=== PATIENT | female | born 1940 | race Caucasian/White ===

== ENCOUNTER 2018-08-16 08:00 | Inpatient (IN) ==
[~2018-08-16 08:00] MED LIST: BUPivacaine Liposome/PF (Exparel) Inj 20ml vial INFIL ONE; Ketorolac Inj 30 MG, Morphine Inj (Ortho Cocktail) 5 MG, BUPivacaine Inj 0.25% PF 150 MG SPLASH ONE; LIDOCAINE W/ SODIUM BICARB 0.5 ML SYR SUBD PRN; Nasal Sanitizer POPSWAB ampule 3 AMP (Nozin) PREOP DOSE ENOS SCH; Tranexamic Acid 1,000 MG in Sodium Chloride 0.9% 100 ML IV SCH; ceFAZolin Inj 2gm (Premix) 2 GM/50 ML BAG IV ONE
[2018-08-16] MEDS ORDERED: ceFAZolin Inj 2gm (Premix) 2 GM/50 ML BAG IV ONE (08:48)
[2018-08-16] MEDS ORDERED: LIDOCAINE W/ SODIUM BICARB 0.5 ML SYR ONE (08:48)
[2018-08-16] MEDS ORDERED: Lactated Ringers 1,000 ML PRIMARY IV ONE ×3 (08:48→16:51)
[2018-08-16] MEDS ORDERED: fentaNYL Inj 100 MCG/2 ML VIAL ONE (09:28)
[2018-08-16] MEDS ORDERED: MIDAZOLAM HCL 2 MG/2 ML VIAL ONE (09:28)
[2018-08-16] MEDS ORDERED: VECURONIUM BROMIDE 10 MG VIAL ONE (09:29)
[2018-08-16] MEDS ORDERED: PROPOFOL 10 MG/1 ML (200 MG/20 ML) VIAL IV ONE (09:31)
[2018-08-16] MEDS ORDERED: KETAMINE HCL 100 MG/2 ML SYRINGE IV ONE (09:31)
[2018-08-16] MEDS: Lactated Ringers 1,000 ML PRIMARY IV SCH ×2 (10:10→19:30)
--- NOTE | 2018-08-16 11:03 | CONSULT ---
Consult Note - Consult Reason for Consult: PostOp Consulation : Ortho Requesting Physician: Moy Primary Care Provider: NEVAEH JHA - History of Present Illness History of Present Illness: Patient is in the was seen in the preop area is getting ready to go in for her surgery she is doing well at present time has no complaints no chest pain nausea or vomiting he does have a history of diabetes Past Medical History Medical History: Diabetes, GERD Tobacco Use: Never Smoker In the Past 12 Months, Have Used or Abuse Any of the Following Substance: None Review of Systems - Review of Systems All Systems: Reviewed & No Additional Complaints Except as Stated - Respiratory Respiratory: DENIES: Negative System Review, Cough, Sputum, Dyspnea At Rest, Dyspnea with Exertion, Pleuritic Pain, Hemoptysis, Wheezing, Other, See HPI - Cardiovascular Cardiovascular: DENIES: Negative System Review, Chest Pain, Edema, Syncope, Palpitations, Orthopnea, Paroxysmal Nocturnal Dyspnea, Other, See HPI - Gastrointestinal Gastrointestinal / Abdominal: DENIES: Negative System Review, Nausea, Vomiting, Diarrhea, Constipation, Abdominal Pain, Bloody Stool, Poor Appetite, Heartburn, Regurgitation, Bloating, Lactose Intolerance, Melena, Bright Red Blood per Rect um, Other, See HPI Medication / Allergies Home Medications: Home Medications Medication Instructions Recorded Confirmed Type coenzyme Q10 100 mg capsule 200 mg PO QDAY cap 10/22/17 08/16/18 History duloxetine 60 mg capsule,delayed 60 mg PO QDAY 10/22/17 08/16/18 History release ferrous sulfate 325 mg (65 mg 325 mg PO QDAY tab 10/22/17 08/16/18 History iron) tablet,delayed release furosemide 20 mg tablet 20 mg PO QDAY 10/22/17 08/16/18 History metformin 500 mg tablet 500 mg PO BID 10/22/17 08/16/18 History omeprazole 20 mg capsule,delayed 20 mg PO QDAY 10/22/17 08/16/18 History release pravastatin 80 mg tablet 80 mg PO QHS tab 10/22/17 08/16/18 History spironolactone 25 mg tablet 25 mg PO QDAY 10/22/17 08/16/18 History metoprolol tartrate 50 mg tablet 50 mg PO BID 01/05/18 08/16/18 History losartan 100 mg tablet 100 mg PO QDAY 06/29/18 08/16/18 History Acetaminophen [Tylenol] PO 08/16/18 History Aspirin [Aspir 81] 81 mg PO 08/16/18 History Calcium Carb, Citrate/Vit D3 1 ea PO DAILY 08/16/18 08/16/18 History [Calcium + D3 ER Tablet] Allergies/Adverse Reactions: Allergies Allergy/AdvReac Type Severity Reaction Status Date / Time meloxicam AdvReac ITCHING Verified 08/16/18 10:25 Exam - Vitals Vital Signs: Vital Signs Height 5 ft 3 in Weight 174 lb 12.8 oz - General General Appearance: No Acute Distress, Cooperative - ENT ENT Exam: POSITIVE: Normal Exam, Normal External Ear Exam, Normal Oropharynx, TM's Normal Bilaterally, Mucous Membranes Moist - Respiratory Respiratory Exam: POSITIVE: Clear to Auscultation - Bilaterally, Breathing Non Labored, Normal To Percussion, Normal to Percussion and Palpation - Cardiovascular Cardiovascular Exam: POSITIVE: RRR, No Murmur, No Clicks, No Gallops, No Rubs, PMI Non-Displaced - GI/Abdominal GI/Abdominal Exam: POSITIVE: Normal Bowel Sounds, Non Tender, Non Distended, Soft, No Masses, No Hepatomegaly, No Splenomegaly, No Organomegaly Results - Labs CBC and BMP: 08/16/18 10:55 Assessment and Plan - Patient Problems (1) Diabetes Current Visit: Yes Status: Acute Comment: Hold metformin cover patient with sliding scale Code(s): E11.9 - Type 2 diabetes mellitus without complications (2) S/P hip replacement Current Visit: Yes Status: Acute Comment: Postop PT OT and anticoagulation and pain management as per Dr. Winter Code(s): Z96.649 - Presence of unspecified artificial hip joint
[2018-08-16] MEDS ORDERED: Sodium Chloride 0.9% 2,000 ML PRIMARY IV ONE (11:40)
[2018-08-16] MEDS ORDERED: Sodium Chloride 0.9% 0 ML ONE (11:40)
[2018-08-16 11:41] LABS: BILIRUBIN,URINE NEGATIVE (NEG); CLARITY,URINE CLEAR (CLEAR); COLOR,URINE YELLOW (Y); GLUCOSE, URINE (UA) NEGATIVE (NEG); OCCULT BLOOD,URINE NEGATIVE (NEG); PH,URINE 6.5 (5.0-8.5); PROTEIN,URINE TRACE mg/dl (NEG)
[2018-08-16 11:42] LABS: URINE SAMPLE TYPE CLEAN CATCH URINE
[2018-08-16] MEDS ORDERED: HEPARIN 10,000 UNIT/1 ML ONE (11:52)
[2018-08-16] MEDS ORDERED: Sodium Chloride 0.9% vial 40 ML ONE (11:52)
[2018-08-16] MEDS ORDERED: BUPivacaine Liposome/PF (Exparel) Inj 20ml vial INFIL ONE (11:52)
[2018-08-16] MEDS ORDERED: Gentamicin Inj 40 MG/ML VIAL ONE (11:52)
[2018-08-16] MEDS ORDERED: ePHEDrine Inj 50 MG/ML AMP ONE (12:42)
[2018-08-16] MEDS ORDERED: DEXAMETHASONE PF 10 MG/1 ML VIAL ONE (12:43)
[2018-08-16] MEDS ORDERED: Hetastarch 6% + NS 500 ML IV ONE (13:01)
[2018-08-16] MEDS ORDERED: TRANEXAMIC ACID 1,000 MG / 10 ML VIAL ONE (13:03)
[2018-08-16] MEDS ORDERED: ONDANSETRON 4 MG/2 ML VIAL ONE (14:46)
[2018-08-16] MEDS ORDERED: HYDROmorphone 2 MG/1 ML ONE (14:55)
[2018-08-16] MEDS ORDERED: SUGAMMADEX SODIUM 200 MG/2 ML VIAL IV ONE (14:57)
[2018-08-16] MEDS ORDERED: Sodium Chloride 0.9% 500 ML ONE ×2 (15:04→15:07)
--- NOTE | 2018-08-16 15:11 | ORTHO.OP ---
- - -: See Dictated Operative Report Procedure Codes - Hip Procedures Primary Hip Procedure: 30988 : SLOAN (Bel SONI assisted)
[2018-08-16] MEDS ORDERED: Prochlorperazine Edisylate Inj 10mg/2ml vial IVP ONE (15:45)
[2018-08-16] MEDS ORDERED: Prochlorperazine Edisylate Inj 10mg/2ml vial ONE (15:51)
[2018-08-16] MEDS ORDERED: LIDOCAINE HCL 2 % 10 ML JELLY URO-JECT TOPICAL PRN (17:08)
--- NOTE | 2018-08-16 17:12 | DI ---
XR HIP COMPLETE MIN 2VW U/L 08/16/2018 3:04 PM History: [facility] [place] DI ^right total hip for osteoarthritis Comparison: 10/22/2017. Findings: Portable AP view of the pelvis and AP/crosstable lateral views of the right hip demonstrate right total hip arthroplasty. There is no evidence of hardware fracture or loosening. The acetabular cup is in expected position. [place] are noted along the lateral skin line. A drain tip projects ove r the anterior hip joint. Gas is noted in the soft tissues, an expected finding in the immediate post operative timeframe. No evidence of acute fracture, aggressive bone lesion, or focal periostitis. The re are degenerative changes of the left hip and spine. The soft tissues are otherwise unremarkable. Impression: Status post right total hip arthroplasty without evidence of hardware failure or acute o sseous abnormality.
[2018-08-16] MEDS ORDERED: LIDOCAINE HCL 2 % 10 ML JELLY URO-JECT TOPICAL ONE (17:14)
[2018-08-16 17:40] LABS: Hematocrit [HCT] 23.4 % (37.0-47.0); Hemoglobin [HGB] 7.7 g/dL (12.0-16.0); MEAN CORPUSCULAR HEMOGLOBIN 33.2 PG (27-31); MEAN CORPUSCULAR HGB CONC 32.9 g/dL (33-37); MEAN CORPUSCULAR VOLUME 100.9 FL (81-99); MEAN PLATELET VOLUME 9.2 FL (7.4-12.2); RED BLOOD COUNT 2.32 10^6/uL (4.20-5.40)
[2018-08-16 17:51] LABS: BLOOD UREA NITROGEN 32 mg/dL (7-22); BUN/CREATININE RATIO 26.66 (6-20); SERUM ALBUMIN 2.5 g/dL (3.5-4.8)
--- NOTE | 2018-08-16 17:54 | CRNA.PROGR ---
Anesthesia Time - Procedure/Recovery Time Start Date: 08/16/18 End Date: 08/16/18 Anesthesia : Time In: 12:07 Anesthesia : Time Out: 15:27 Anesthesia : Total Time: 200 - Total Anesthesia Time Total Anesthesia Time (minutes): 200 - Other Weight: 79.288 kg Height: 5 ft 3 in Body Mass Index (BMI): 30.9 Physical Status: P2 Anesthesia Type: General Anesthesia : ET
--- NOTE | 2018-08-16 17:55 | CRNA.PROGR ---
Post Anesthesia Phase II - Post Anesthesia Phase II Patient Stable and Discharged To: Med/Surg Temperature: 98.6 F Pulse Rate: 61 Respiratory Rate: 12 Blood Pressure: 93/44 Pulse Ox: 93 Total Reji Score at Discharge: 9 Post Anesthesia Discharge Criteria Met: Yes
--- NOTE | 2018-08-16 17:55 | CRNA.PROGR ---
Anesthesia Recovery Phase I - Post Anesthesia Evaluation Patient's Condition on Arrival in Phase I: Stable Patient's Condition on Arrival in Phase II: Stable Pain Level: 1 (Nauseated. Medicated for such. Transferred to [facility].)
[2018-08-16] MEDS ORDERED: Lactated Ringers 2,000 ML PRIMARY IV ONE (18:03)
[2018-08-16] MEDS ORDERED: MAG HYDROX/AL HYDROX/SIMETH 30 ML SUSP PO PRN (18:37)
[2018-08-16] MEDS ORDERED: diphenhydrAMINE 25 MG CAPSULE PO PRN (18:37)
[2018-08-16] MEDS ORDERED: CALCIUM CARBONATE 500 MG (TUMS) CHEWABLE TABLET PO PRN (18:37)
[2018-08-16] MEDS ORDERED: HYDROmorphone 2 MG/1 ML IVP PRN (18:37)
[2018-08-16] MEDS ORDERED: BISACODYL 5 MG TABLET PO PRN (18:37)
[2018-08-16] MEDS ORDERED: ONDANSETRON 4 MG/2 ML VIAL IVP PRN (18:37)
[2018-08-16] MEDS ORDERED: BISACODYL 10 MG SUPPOSITORY RECTAL PRN (18:37)
[2018-08-16] MEDS ORDERED: Ondansetron ODT Tab 8 MG TAB PO PRN (18:37)
[2018-08-16] MEDS ORDERED: KETOROLAC 15 MG/1 ML VIAL IVP PRN (18:37)
[2018-08-16] MEDS ORDERED: Prochlorperazine Tab 10 MG TAB PO PRN (18:37)
[2018-08-16] MEDS ORDERED: ACETAMINOPHEN 325 MG TABLET PO PRN (18:37)
[2018-08-16] MEDS: DOCUSATE 100 MG CAPSULE PO SCH (21:09)
[2018-08-16] MEDS: Pravastatin 80mg Tab PO SCH (21:09)
[2018-08-16] MEDS: metFORMIN 500 MG TABLET PO SCH (21:10)
[2018-08-16] MEDS: ceFAZolin Inj 2gm (Premix) 2 GM/50 ML BAG IV SCH (21:12)
[2018-08-16] MEDS: Metoprolol TARTRATE Tab 50 MG TAB PO SCH (21:25)
[2018-08-17] MEDS: HYDROcodone-APAP 7.5 MG-325 MG TABLET PO PRN ×5 (01:50→20:59)
[2018-08-17] MEDS: ceFAZolin Inj 2gm (Premix) 2 GM/50 ML BAG IV SCH (04:34)
[2018-08-17] MEDS: Lactated Ringers 1,000 ML PRIMARY IV SCH ×3 (04:35→15:38)
[2018-08-17 05:21] LABS: MEAN CORPUSCULAR HEMOGLOBIN 32.7 PG (27-31); MEAN CORPUSCULAR HGB CONC 32.5 g/dL (33-37); MEAN CORPUSCULAR VOLUME 100.5 FL (81-99); MEAN PLATELET VOLUME 10.3 FL (7.4-12.2); RED BLOOD COUNT 1.99 10^6/uL (4.20-5.40)
[2018-08-17 05:25] LABS: Hemoglobin [HGB] 6.5 g/dL (12.0-16.0)
[2018-08-17 05:26] LABS: BLOOD UREA NITROGEN 34 mg/dL (7-22); BUN/CREATININE RATIO 28.33 (6-20)
[2018-08-17] MEDS ORDERED: Sodium Chloride 0.9% 500 ML PRIMARY IV ONE (05:44)
[2018-08-17] MEDS ORDERED: Spironolactone Tab 25 MG TAB PO SCH (07:00)
--- NOTE | 2018-08-17 07:10 | PDOC(PROG) ---
Interval History: Uneventful night no chest pain nausea or vomiting she is getting transfused at present time Objective : Data - Labs CBC and BMP: 08/17/18 04:14 08/17/18 04:14 Objective : Exam - General General Appearance: Cooperative - Respiratory Respiratory Exam: Clear to Auscultation - Bilaterally, Breathing Non Labored, Normal To Percussion, Normal to Percussion and Palpation - Cardiovascular Cardiovascular Exam: RRR, No Murmur, No Clicks, No Gallops, No Rubs, PMI Non- Displaced - GI/Abdominal GI/Abdominal Exam: Normal Bowel Sounds, Non Tender, Non Distended, Soft, No Masses, No Hepatomegaly, No Splenomegaly, No Organomegaly - Extremities Extremities Exam: No Clubbing Present, No Edema Present, No Cyanosis Present Assessment and Plan - Patient Problems (1) Diabetes Current Visit: Yes Status: Acute Comment: Check sugars before meals at bedtime continue sliding scale Code(s): E11.9 - Type 2 diabetes mellitus without complications (2) S/P hip replacement Current Visit: Yes Status: Acute Comment: Defer anticoagulation PT OT and pain to Dr. Winter Code(s): Z96.649 - Presence of unspecified artificial hip joint (3) Postoperative anemia Current Visit: Yes Status: Acute Comment: Postop anemia with marginal blood pressure drifted down to below 7 Will transfuse 2 units as they are already on hold and type and crossed patient is hemodynamically unstable with marginal blood pressure even with multiple fluid boluses. Stop Aldactone and Cozaar Code(s): D64.9 - Anemia, unspecified (4) Hyperkalemia Current Visit: Yes Status: Acute Comment: We'll stop Aldactone and Cozaar continue beta henri potassium is at 5 Code(s): E87.5 - Hyperkalemia
[2018-08-17] MEDS: OMEPRAZOLE 20 MG CAPSULE PO SCH ×3 (08:02→20:59)
[2018-08-17] MEDS: FUROSEMIDE 20 MG TABLET PO SCH (08:02)
[2018-08-17] MEDS ORDERED: LOSARTAN 50 MG TABLET PO SCH (09:00)
[2018-08-17] MEDS: metFORMIN 500 MG TABLET PO SCH ×2 (09:29→20:59)
[2018-08-17] MEDS: DOCUSATE 100 MG CAPSULE PO SCH ×2 (09:29→20:58)
[2018-08-17] MEDS: DULOXETINE 60 MG CAPSULE PO SCH (09:29)
[2018-08-17] MEDS: Calcium/Vit D 600mg/400u Tab 1 TAB TABLET PO SCH (09:29)
[2018-08-17] MEDS: Metoprolol TARTRATE Tab 50 MG TAB PO SCH ×2 (09:29→20:58)
[2018-08-17] MEDS: ASPIRIN 325 MG EC TABLET PO SCH ×2 (09:29→20:59)
[2018-08-17] MEDS ORDERED: FUROSEMIDE 10 MG/1 ML - 4 ML IVP ONE (09:30)
--- NOTE | 2018-08-17 16:42 | PTI REPORT ---
Thank you for the referral of Zonia De La Rosa. She was seen on 08/17/18 for an inpatient evaluation status post right total hip arthroplasty. SUBJECTIVE: The patient is a 77-year-old female. The patient reports that she lives in [place] alone. The patient's family is in [place]. The patient has stairs in her home. The patient does not use an assistive device at home and was previously independent. The patient states her pain is minimal right now at 3/10 on the verbal analog scale (0=no pain, 10=worst pain). PAST MEDICAL HISTORY: Past medical history can be found in the patient's medical record. OBJECTIVE FINDINGS: General observations: Nursing okayed treatment prior to PT. The patient had a drain in her right hip. Bed mobility: The patient required min assist to transfer from supine to sitting edge of bed. Transfers: The patient required contact guard assist for sit to stand transfer with walker. The patient required minimal cueing for stand to sit technique and contact guard assist x2 for safety. Ambulation: The patient required contact guard assist x2 for ambulation. The patient ambulated approximately 30 feet with walker. ASSESSMENT: The patient is a 77-year-old female that presents status post total hip arthroplasty. The patient would benefit from skilled therapy in order to improve functional mobility. The patient's prognosis for therapy is good. Problem List: Decreased strength Decreased functional mobility Decreased independence Short-Term Goals: To be met by discharge from inpatient: Patient will be independent with all transfers. Patient will be able to ambulate 150 feet independently with least restrictive assistive device. Patient will be able to ascend and descend stairs independently with least restrictive assistive device. Long-Term Goals: To be met following discharge from inpatient: Patient will benefit from outpatient physical therapy. TREATMENT PLAN: Patient will be seen B.I.D during the week and one time per day over the weekend as an inpatient for therapeutic exercise, functional activity, neuromuscular reeducation, gait training, and modalities as needed. INITIAL TREATMENT: Treatment today consisted of the initial evaluation followed by the patient ambulating approximately 30 feet with contact guard assist x2 and standard walker. Following treatment the patient was left in her chair with chair alarm activated and call light within reach. [facility]
--- NOTE | 2018-08-17 19:19 | ORTHO.PROG ---
Last Taken Vital Signs: Vital Signs - Last Taken Temperature 97.6 F 08/17/18 17:00 Pulse Rate 75 08/17/18 17:00 Respiratory Rate 16 08/17/18 17:00 Blood Pressure 106/54 08/17/18 17:00 Pulse Ox 92 08/17/18 17:00 Subjective: Patient seen this morning this evening was very pale this morning color this evening looks markedly better she feels her pain is well controlled on oral medications. Has mobilized a little bit but had blood transfusions today. Objective: At the current time patient's leg with no active bleeding or swelling her Hemovac drain was removed there is a minimal fluid in the Hemovac and a decreased significantly over the last 12 hours on her popliteal adductor hiatus and thigh no significant pain or discomfort dressing is clean and dry working well. Motor and sensory exam is nonfocal good pulses brisk refill. Intake and Output - 8hrs 08/16/18 08/17/18 08/17/18 08/17/18 21:59 05:59 13:59 21:59 Intake: IV 3800 / 4647 847 / 4647 1268 / 1268 Intake Oral Amount 200 / 670 470 / 670 1220 / 1700 480 / 1700 Breakfast 480 / 480 Dinner 480 / 480 Lunch 240 / 240 Intake, Blood Product Amount 450 / 450 Packed Red Bld Cells Unit 450 / 450 [id number] Packed Red Bld Cells Unit 0 / 0 [id number] OrthoPat 75 / 75 Output: Output, Drainage Amount 120 / 120 60 / 60 Right Hip 60 / 60 Output, Urinary Catheter Amount 300 / 300 750 / 1750 1000 / 1750 Output, Urine Amount 100 / 100 Output, Post Indwelling 100 / 100 Catheter Insertion Output, Estimated Blood Loss 600 / 600 Amount Other: Percent Meal Consumed Breakfast 100% Dinner 100% Lunch 100% Drains Hemovac Negative Pressure Drain right anterior hip Hemovac Wound Vac Weight 79.288 kg 79.651 kg Weight Measurement Method Built in [facility] Laboratory Results 08/16/18 08/17/18 08/17/18 10:46 04:14 04:14 WBC 8.84 RBC 1.99 L Hgb 6.5 L* Hct 20.0 L* MCV 100.5 H MCH 32.7 H MCHC 32.5 L RDW Std Deviation 41.6 RDW Coeff of Fran 12.3 Plt Count 117 L MPV 10.3 Sodium 135 Potassium 5.5 H Chloride 106 Carbon Dioxide 24 Anion Gap 5 BUN 34 H Creatinine 1.2 BUN/Creatinine Ratio 28.33 H Glucose 158 H Calculated Osmolality 290.0 Calcium 8.3 L Blood Type O POSITIVE Antibody Screen Negative Crossmatch See Detail Vital Signs (24 hrs) 08/16/18 20:27 08/16/18 23:00 08/17/18 00:11 Temperature 97.4 F 97.7 F Pulse Rate Pulse Rate [Pulse Oximeter] 65 72 80 Respiratory Rate 20 16 20 Blood Pressure Blood Pressure [Left Arm] 102/49 Blood Pressure [Right Arm] 97/52 113/51 Pulse Ox 97 98 99 08/17/18 02:00 08/17/18 04:52 08/17/18 05:33 Temperature 98.5 F Pulse Rate Pulse Rate [Pulse Oximeter] 86 79 Respiratory Rate 17 16 Blood Pressure Blood Pressure [Left Arm] Blood Pressure [Right Arm] 104/50 106/43 Pulse Ox 95 93 94 08/17/18 06:57 08/17/18 07:00 08/17/18 07:48 Temperature 97.1 F 98.5 F Pulse Rate 79 Pulse Rate [Pulse Oximeter] 78 78 Respiratory Rate 18 18 18 Blood Pressure 114/45 Blood Pressure [Left Arm] Blood Pressure [Right Arm] 114/44 Pulse Ox 95 97 08/17/18 07:55 08/17/18 07:59 08/17/18 08:06 Temperature 98.5 F 97.9 F 98.0 F Pulse Rate 88 86 90 Pulse Rate [Pulse Oximeter] Respiratory Rate 18 18 18 Blood Pressure 118/51 121/72 122/70 Blood Pressure [Left Arm] Blood Pressure [Right Arm] Pulse Ox 97 98 94 08/17/18 08:07 08/17/18 08:15 08/17/18 08:22 Temperature 97.9 F 97.5 F 97.6 F Pulse Rate 90 83 85 Pulse Rate [Pulse Oximeter] Respiratory Rate 18 18 18 Blood Pressure 133/45 129/63 113/54 Blood Pressure [Left Arm] Blood Pressure [Right Arm] Pulse Ox 92 91 95 08/17/18 08:35 08/17/18 08:48 08/17/18 09:00 Temperature 98.1 F 98.4 F 98.1 F Pulse Rate 85 87 85 Pulse Rate [Pulse Oximeter] Respiratory Rate 18 18 18 Blood Pressure 116/63 116/41 118/55 Blood Pressure [Left Arm] Blood Pressure [Right Arm] Pulse Ox 93 94 92 08/17/18 09:15 08/17/18 09:30 08/17/18 10:00 Temperature 97.7 F 98.2 F 98.2 F Pulse Rate 84 79 71 Pulse Rate [Pulse Oximeter] Respiratory Rate 19 18 18 Blood Pressure 104/56 105/51 107/57 Blood Pressure [Left Arm] Blood Pressure [Right Arm] Pulse Ox 93 94 91 08/17/18 10:46 08/17/18 10:53 08/17/18 11:01 Temperature 97.8 F 97.7 F 98.1 F Pulse Rate 71 71 68 Pulse Rate [Pulse Oximeter] Respiratory Rate 18 18 20 Blood Pressure 115/62 110/92 97/58 Blood Pressure [Left Arm] Blood Pressure [Right Arm] Pulse Ox 95 94 93 08/17/18 11:04 08/17/18 11:08 08/17/18 11:19 Temperature 97.8 F 97.9 F 97.7 F Pulse Rate 68 72 67 Pulse Rate [Pulse Oximeter] Respiratory Rate 20 20 20 Blood Pressure 96/48 96/48 89/51 Blood Pressure [Left Arm] Blood Pressure [Right Arm] Pulse Ox 97 93 95 08/17/18 11:34 08/17/18 11:49 08/17/18 12:32 Temperature 97.8 F 97.6 F 97.9 F Pulse Rate 68 74 87 Pulse Rate [Pulse Oximeter] Respiratory Rate 20 20 20 Blood Pressure 111/88 103/42 111/63 Blood Pressure [Left Arm] Blood Pressure [Right Arm] Pulse Ox 95 97 96 08/17/18 12:58 08/17/18 17:00 Temperature 97.9 F 97.6 F Pulse Rate 80 Pulse Rate [Pulse Oximeter] 75 Respiratory Rate 20 16 Blood Pressure 123/49 Blood Pressure [Left Arm] Blood Pressure [Right Arm] 106/54 Pulse Ox 96 92 Assessment: Right total hip replacement Marked anemia Plan: Patient transfused 2 units of packed red blood cells and is doing markedly better after this. She did mobilize in the room today and did fine. Patient did have a Ahumada catheter placed issues unable to get up to void. She'll continue with oral pain medication and IV medication as needed. We'll continue with physical therapy and occupational therapy partial weightbearing with walker.
[2018-08-17] MEDS: Pravastatin 80mg Tab PO SCH (20:59)
[2018-08-18 05:12] LABS: Hematocrit [HCT] 27.7 % (37.0-47.0); MEAN CORPUSCULAR HEMOGLOBIN 32.5 PG (27-31); MEAN CORPUSCULAR HGB CONC 32.5 g/dL (33-37); MEAN PLATELET VOLUME 10.4 FL (7.4-12.2); RED BLOOD COUNT 2.77 10^6/uL (4.20-5.40)
[2018-08-18 05:31] LABS: BLOOD UREA NITROGEN 43 mg/dL (7-22); BUN/CREATININE RATIO 30.71 (6-20)
[2018-08-18] MEDS: FUROSEMIDE 20 MG TABLET PO SCH (08:16)
--- NOTE | 2018-08-18 08:43 | PDOC(PROG) ---
Date of Service: 08/18/18 Time of Service: 08:45 Interval History: Subjective Patient is denying symptoms. Her pain seemed to be controlled. She is not feeling dizzy or lightheaded today. She said she has a history of congestive heart failure, previous history of A. fib, hypertension and diabetes. She is on metoprolol, Aldactone and Lasix. She was on Diovan apparently switched to losartan. Objective : Data - Labs CBC and BMP: 08/18/18 03:55 08/18/18 03:55 Objective : Exam - General General Appearance: No Acute Distress - Head Head Exam: Normal Inspection - Eye Eye Exam: Normal Appearance - ENT ENT Exam: Normal Exam - Neck Neck Exam: Normal Inspection - Respiratory Respiratory Exam: Clear to Auscultation - Bilaterally - Cardiovascular Cardiovascular Exam: RRR - GI/Abdominal GI/Abdominal Exam: Normal Bowel Sounds, Non Tender, Non Distended, Soft, No Organomegaly - Rectal Rectal Exam: Deferred - External Exam: Deferred - Extremities Additional Extremities Exam Details: No edema, SCD boots applied. Dressing applied to the right hip. Right hip drain noted. - Back Back Exam: Normal Inspection - Neurological Neurological Exam: Alert, Oriented x 3, CN II-XII Intact - Psychiatric Psychiatric Exam: Normal Affect - Integumentary Integumentary Exam: Normal Color Assessment and Plan - Patient Problems (1) S/P hip replacement Current Visit: Yes Status: Acute Comment: Pain seemed to be controlled, continue PT and OT. For DVT prophylaxis she is on aspirin. Code(s): Z96.649 - Presence of unspecified artificial hip joint (2) Diabetes Current Visit: Yes Status: Acute Comment: Continue metformin Code(s): E11.9 - Type 2 diabetes mellitus without complications (3) Postoperative anemia Current Visit: Yes Status: Acute Comment: She status post blood transfusion, hemoglobin is acceptable today will repeat it tomorrow. Code(s): D64.9 - Anemia, unspecified (4) Hyperkalemia Current Visit: Yes Status: Acute Comment: Losartan and Aldactone where withheld. Continue holding those. Code(s): E87.5 - Hyperkalemia (5) Hypertension Current Visit: Yes Status: Acute Comment: Continue holding losartan, Aldactone, furosemide continue metoprolol. Code(s): I10 - Essential (primary) hypertension (6) Chronic renal failure Current Visit: Yes Status: Acute Comment: Her Creatinine presurgery was 1.5, will monitor her kidney function. She did receive a total of 60 mg of Lasix yesterday. We'll hold furosemide today. Code(s): N18.9 - Chronic kidney disease, unspecified
[2018-08-18] MEDS: metFORMIN 500 MG TABLET PO SCH ×2 (08:44→20:26)
[2018-08-18] MEDS: ASPIRIN 325 MG EC TABLET PO SCH ×2 (08:44→20:26)
[2018-08-18] MEDS: Calcium/Vit D 600mg/400u Tab 1 TAB TABLET PO SCH (08:44)
[2018-08-18] MEDS: Metoprolol TARTRATE Tab 50 MG TAB PO SCH ×2 (08:45→20:26)
[2018-08-18] MEDS: HYDROcodone-APAP 7.5 MG-325 MG TABLET PO PRN ×4 (08:45→20:26)
[2018-08-18] MEDS: DOCUSATE 100 MG CAPSULE PO SCH ×2 (08:46→20:26)
[2018-08-18] MEDS: DULOXETINE 60 MG CAPSULE PO SCH (08:46)
--- NOTE | 2018-08-18 15:10 | ORTHO.PROG ---
Last Taken Vital Signs: Vital Signs - Last Taken Temperature 97.3 F 08/18/18 09:00 Pulse Rate 63 08/18/18 09:00 Respiratory Rate 20 08/18/18 09:00 Blood Pressure 118/50 08/18/18 09:00 Pulse Ox 93 08/18/18 09:00 Subjective: Patient doing well swelling well controlled pain Objective: Examination leg show that the Prevena negative suction close incision dressing in place no active issues minimal swelling or tenderness to the right leg. Popliteal adductor hiatus or thigh pain. No significant edema in the lower extremity at the current time. Good pulses brisk refill good foot and ankle motion. Intake and Output - 8hrs 08/17/18 08/18/18 08/18/18 08/18/18 21:59 05:59 13:59 21:59 Intake: Intake Oral Amount 480 / 1900 200 / 1900 600 / 600 Dinner 480 / 480 Output: Output, Urinary Catheter Amount 1000 / 2275 525 / 2275 400 / 400 Other: Percent Meal Consumed Breakfast 100% Dinner 100% Lunch 75% Laboratory Results 08/18/18 08/18/18 03:55 03:55 WBC 9.42 RBC 2.77 L Hgb 9.0 L Hct 27.7 L MCV 100.0 H MCH 32.5 H MCHC 32.5 L RDW Std Deviation 46.1 RDW Coeff of Fran 13.4 Plt Count 105 L MPV 10.4 Sodium 132 L Potassium 5.1 Chloride 103 Carbon Dioxide 25 Anion Gap 4 L BUN 43 H Creatinine 1.4 H Estimated GFR [employer] BUN/Creatinine Ratio 30.71 H Glucose 118 H Calculated Osmolality 285.0 Calcium 8.4 L Vital Signs (24 hrs) 08/17/18 17:00 08/17/18 21:00 08/18/18 00:27 Temperature 97.6 F 97.1 F 98.0 F Pulse Rate [Pulse Oximeter] 75 72 60 Respiratory Rate 16 18 16 Blood Pressure [Left Arm] 113/84 Blood Pressure [Right Arm] 106/54 111/45 Pulse Ox 92 91 96 08/18/18 03:56 08/18/18 04:15 08/18/18 08:50 Temperature 97.2 F Pulse Rate [Pulse Oximeter] 66 64 Respiratory Rate 16 16 Blood Pressure [Left Arm] Blood Pressure [Right Arm] 104/52 Pulse Ox 91 98 08/18/18 09:00 Temperature 97.3 F Pulse Rate [Pulse Oximeter] 63 Respiratory Rate 20 Blood Pressure [Left Arm] Blood Pressure [Right Arm] 118/50 Pulse Ox 93 Assessment: Right total hip replacement doing well Anemia requiring 2 units of packed RBCs Plan: Continue with current plan
--- NOTE | 2018-08-18 16:19 | OTI REPORT ---
Thank you for the referral of Zonia De La Rosa. She was seen on 08/18/18 for an occupational therapy inpatient evaluation status post right total hip arthroplasty. SUBJECTIVE: The patient is a 77-year-old female. The patient currently reports very minimal pain at 1 to 2/10 on the verbal analog scale (0=no pain, 10=worst pain) in the right hip. She does report some stiffness; however, this improved with walking when she was seen by physical therapy. The patient lives in [place], [place] by herself as her a couple of years ago. She reports five steps to get inside of her house. The patient does live alone. She has a basement and she does need to go down there to complete laundry tasks; however, she reports that she has a friend and she is able to use her laundry equipment for the time being. At prior level of function the patient did not use an assistive device for functional mobility. She does have a tub/shower combo with grab bars and a shower stool that she uses on a daily basis. She also has a high rise toilet. The patient currently has a drain in on the right side. At prior level of function the patient was independent in all ADLs, iADLs, and driving. PAST MEDICAL HISTORY: Past medical history can be found in the patient's medical record. OBJECTIVE FINDINGS: Transfers: The patient demonstrated the ability to complete functional transfers from recliner chair with contact guard assist for safety, standing with a standard walker that was given by PT. Ambulation: The patient demonstrated the ability to ambulate short distances with contact guard assist for safety. Activities of daily living: The patient completed lower extremity dressing to include donning and doffing of socks with minimal assistance and verbal cues with use of a human resources executive assistant and sock aide. Range of motion: The patient demonstrated upper extremity range of motion within functional limits. Strength: The patient demonstrated upper extremity strength of 4/5 bilaterally for the shoulder, elbow, hand, and wrist. Pain: The patient reports achy shoulders bilaterally; however, they feel good due to pain medication at this time. ASSESSMENT: The patient's rehab potential is good. The patient reports that she may be going to swingbed status; however, she is unsure at this time. Problem List: Decreased ability to complete lower and upper extremity dressing Decreased ability to complete functional transfers Decreased activity tolerance Decreased standing balance Decreased ability to complete ADLs Decreased upper extremity strength Short-Term Goals: To be met by discharge from inpatient: Patient will increase bilateral upper extremity strength by one manual muscle grade. Patient will increase activity tolerance and standing balance to stand for 8-10 minutes to complete standing grooming tasks with no losses of balance. Patient will complete lower extremity dressing with the use of adaptive equipment and modified independence. Patient will complete upper extremity dressing independently. Patient will complete all functional transfers to include bed, chair, and toilet with contact guard assist only for safety. Long-Term Goals: To be met following discharge from inpatient: Patient will return home to prior level of function safely in her home in [place]. Patient may be seen by outpatient physical therapy in [place]. TREATMENT PLAN: Patient will be seen B.I.D during the week and one time per day over the weekend as an inpatient to address the above goals and objectives. INITIAL TREATMENT: Treatment today consisted of the initial evaluation followed by functional dressing tasks and functional mobility. The patient was given a long handled bath sponge, a long handled shoe horn, a human resources executive assistant, and a sock aide. JOSE
--- NOTE | 2018-08-18 16:36 | PT.PROG ---
Progress Note Progress Note: S. Patient stated that she is feeling better this morning. O. Patient ambulated 90 feet in the queen and back to her room where she was left in her chair with OT. A. Patient tolerated ambulation well. She was able to ambulate further today compared to yesterday. She would continue to benefit from skilled therapy to increase strength, mobility and safety at this time. P. Continue POC.
--- NOTE | 2018-08-18 16:49 | OT.PROG ---
Progress Note Progress Note: S: pt stated she was ready for therapy. Stated she just took her pain meds. O: pt was seen in her bed in supine position. She needed min A with bed mobility to EOB. She completed toilet transfer and completed toilet hygiene INd. She managed LE garments INd while in restroom and completed hygiene Ind at sink. She completed transfer approx 65 ft before sitting in w/c before being taken downstairs. She completed x1 sit to stand INd and transfer to mat table. She received heat to elongate muscle fibers. A: pt transferred well and may continue to benefit from therapy to increase function in preparation for return home. P: continue per POC.
[2018-08-18] MEDS: Pravastatin 80mg Tab PO SCH (20:25)
[2018-08-18] MEDS: OMEPRAZOLE 20 MG CAPSULE PO SCH (20:26)
[2018-08-19] MEDS: HYDROcodone-APAP 7.5 MG-325 MG TABLET PO PRN ×4 (00:46→20:40)
[2018-08-19 04:28] LABS: Hemoglobin [HGB] 9.5 g/dL (12.0-16.0); MEAN CORPUSCULAR HEMOGLOBIN 33.1 PG (27-31); MEAN CORPUSCULAR HGB CONC 32.8 g/dL (33-37); MEAN PLATELET VOLUME 10.5 FL (7.4-12.2); RED BLOOD COUNT 2.87 10^6/uL (4.20-5.40)
[2018-08-19 04:36] LABS: BLOOD UREA NITROGEN 43 mg/dL (7-22); BUN/CREATININE RATIO 33.07 (6-20)
--- NOTE | 2018-08-19 07:26 | PT.PROG ---
Progress Note Progress Note: S: Pt. states she is doing ok today. States she will be doing the swing bed program so that she can be stronger before she returns home. O: Treatment consisted of moist heat to right hip followed by therapeutic exercises: qs, hs, ankle pumps, glut sets, saq, sit to stands x 10 and box step ups with #2 box x 10. She then received manual therapy for ROM and stretching of right LE. She was then able to ambulate 75 feet with standard walker and CGA x 1. Pt. was able to get into bed with min assist and verbal cueing. A: Pt. overall performed all activities well. She is progressing with independence and mobility. She will do well with additional therapy for preparation to return home independently. P: Continue per POC to increase strength and activity tolerance. Sapna Schroeder, REVENUE DIRECTOR
[2018-08-19] MEDS: DULOXETINE 60 MG CAPSULE PO SCH (08:26)
[2018-08-19] MEDS: Metoprolol TARTRATE Tab 50 MG TAB PO SCH ×2 (08:26→20:39)
[2018-08-19] MEDS: Calcium/Vit D 600mg/400u Tab 1 TAB TABLET PO SCH (08:27)
[2018-08-19] MEDS: metFORMIN 500 MG TABLET PO SCH ×2 (08:27→20:39)
[2018-08-19] MEDS: ASPIRIN 325 MG EC TABLET PO SCH ×2 (08:27→20:39)
[2018-08-19] MEDS: DOCUSATE 100 MG CAPSULE PO SCH ×2 (08:27→20:39)
--- NOTE | 2018-08-19 09:04 | ORTHO.PROG ---
Last Taken Vital Signs: Vital Signs - Last Taken Temperature 97.2 F 08/19/18 07:03 Pulse Rate 68 08/19/18 07:03 Respiratory Rate 18 08/19/18 07:03 Blood Pressure 141/69 08/19/18 07:03 Pulse Ox 92 08/19/18 07:03 Subjective: Patient feeling well this morning notes a little sore on right hip but otherwise doing well Objective: The leg with no evidence of infection the negative suction dressing is in place. No motor or sensory issues. Patient with minimal swelling no distal swelling or edema. No calf, popliteal adductor hiatus or thigh pain. Laboratory Results 08/19/18 08/19/18 04:00 04:00 WBC 7.41 RBC 2.87 L Hgb 9.5 L Hct 29.0 L MCV 101.0 H MCH 33.1 H MCHC 32.8 L RDW Std Deviation 46.8 RDW Coeff of Fran 13.5 Plt Count 107 L MPV 10.5 Sodium 136 Potassium 4.9 Chloride 104 Carbon Dioxide 27 Anion Gap 5 BUN 43 H Creatinine 1.3 H Estimated GFR Security Flex Utility Officer BUN/Creatinine Ratio 33.07 H Glucose 109 Calculated Osmolality 293.0 H Calcium 9.0 Vital Signs (24 hrs) 08/18/18 13:00 08/18/18 17:00 08/18/18 20:35 Temperature 97.5 F 98.5 F 98.6 F Pulse Rate [Pulse Oximeter] 62 62 74 Respiratory Rate 16 20 20 Blood Pressure [Left Arm] 135/70 125/59 141/72 Blood Pressure [Right Arm] Pulse Ox 91 92 93 08/19/18 00:29 08/19/18 04:26 08/19/18 04:30 Temperature 98.5 F 96.9 F Pulse Rate [Pulse Oximeter] 68 61 Respiratory Rate 20 18 Blood Pressure [Left Arm] 138/70 Blood Pressure [Right Arm] 136/77 Pulse Ox 93 96 99 08/19/18 07:03 Temperature 97.2 F Pulse Rate [Pulse Oximeter] 68 Respiratory Rate 18 Blood Pressure [Left Arm] Blood Pressure [Right Arm] 141/69 Pulse Ox 92 Assessment: Right total hip replacement doing well Anemia stable Plan: Continue with current plan of physical therapy occupational therapy, pneumatic sequentials and aspirin and pain control. Once mobilizing reasonably well may potentially be a candidate for discharge to home however based on patient's age mobilization may need swing bed status for a period of time until able to do this.
--- NOTE | 2018-08-19 13:51 | PT.PROG ---
Progress Note Progress Note: S. Patient stated that she is feeling better this morning. O. Patient ambulated 80 feet to the wheelchair and was wheeled to the therapy gym where she had heat to her hip to decrease pain. Patient then performed exercises in the form of; heel slides, quad sets, glute sets, ankle pumps, short arc quads, heel toe raises, seated long arc quads, marches, ball squeezes, clam shells, resisted knee flexion, heel toe raises, all x 10 bilaterally with, Patient then performed sit to stands x 10 then ambulated 175 feet to her room and was left with call light and alarm. A. Patient tolerated therapy well, she was able to perform all exercises with no increase in pain or problems. Patient continues to require min assist with transfers and ambulation, she would continue to benefit from skilled therapy to increase strength, endurance, and safety at this time. P. Continue POC.
--- NOTE | 2018-08-19 14:28 | PDOC(PROG) ---
Date of Service: 08/19/18 Time of Service: 14:00 Interval History: Subjective She feels better. Some hip discomfort otherwise denying other symptoms. No dizziness, no shortness of breath. Objective : Data - Labs CBC and BMP: 08/19/18 04:00 08/19/18 04:00 Objective : Exam - General General Appearance: No Acute Distress, Cooperative - Head Head Exam: Normal Inspection - Eye Eye Exam: Normal Appearance - ENT ENT Exam: Normal Exam - Neck Neck Exam: Normal Inspection - Respiratory Respiratory Exam: Clear to Auscultation - Bilaterally - Cardiovascular Cardiovascular Exam: RRR - GI/Abdominal GI/Abdominal Exam: Normal Bowel Sounds, Non Tender, Non Distended, Soft, No Organomegaly - Rectal Rectal Exam: Deferred - External Exam: Deferred Exam: Deferred - Extremities Extremities Exam: Normal Inspection - Back Back Exam: Normal Inspection - Neurological Neurological Exam: Alert, Oriented x 3, CN II-XII Intact, Speech Intact / Clear, Moves All Extremities Equally - Psychiatric Psychiatric Exam: Normal Affect Assessment and Plan - Patient Problems (1) S/P hip replacement Current Visit: Yes Status: Acute Comment: Continue PT and OT. For DVT prophylaxis she is on aspirin. She'll be evaluated for swing bed and likely switch to swing bed tomorrow. Code(s): Z96.649 - Presence of unspecified artificial hip joint (2) Diabetes Current Visit: Yes Status: Acute Comment: Continue metformin Code(s): E11.9 - Type 2 diabetes mellitus without complications (3) Postoperative anemia Current Visit: Yes Status: Acute Comment: She is status post 2 units of blood transfusion. Hemoglobin is stable. Code(s): D64.9 - Anemia, unspecified (4) Hyperkalemia Current Visit: Yes Status: Acute Comment: This is improved. Code(s): E87.5 - Hyperkalemia (5) Hypertension Current Visit: Yes Status: Acute Comment: She is on metoprolol. I think will restart her losartan at a lower dosage though. I think we'll hold off on the Lasix and Aldactone until we see her tomorrow. Code(s): I10 - Essential (primary) hypertension (6) Chronic renal failure Current Visit: Yes Status: Acute Comment: She has stage III kidney disease. Consider restarting the Lasix after evaluation tomorrow. Will restart her losartan at a lower dosage. Code(s): N18.9 - Chronic kidney disease, unspecified
--- NOTE | 2018-08-19 16:36 | PT.PROG ---
Progress Note Progress Note: S. Patient stated that she is feeling a little sore this afternoon. O. Patient ambulated 80 feet to the wheelchair and was wheeled to the therapy gym where she had heat to her hip to decrease pain. Patient then performed exercises in the form of; heel slides, quad sets, glute sets, ankle pumps, short arc quads, heel toe raises, bridges and mini sit ups, seated long arc quads, marches, all x 10 Patient then performed sit to stands x 5 then ambulated 175 feet her room and was left with call light and alarm. A. Patient tolerated therapy well, she was able to perform all exercises with no increase in pain or problems. Patient continues to require min assist with bed mobility however ambulates with Stand by guard assist. she would continue to benefit from skilled therapy to increase strength, endurance at this time. P. Continue POC.
--- NOTE | 2018-08-19 16:49 | OT.PROG ---
Progress Note Progress Note: S: pt stated that she was feeling good and agreed to therapy services. O: tx consisted of RTB exercises in all planes of motion x 15 each and bed mobility exercises. A: pt tolerated session well and continued to improve in functional skills and activity tolerance. P: continue POC
[2018-08-19] MEDS: Pravastatin 80mg Tab PO SCH (20:39)
[2018-08-19] MEDS: OMEPRAZOLE 20 MG CAPSULE PO SCH (20:39)
[2018-08-20 05:37] LABS: BLOOD UREA NITROGEN 38 mg/dL (7-22); BUN/CREATININE RATIO 29.23 (6-20)
[2018-08-20] MEDS: Calcium/Vit D 600mg/400u Tab 1 TAB TABLET PO SCH (08:12)
[2018-08-20] MEDS: DULOXETINE 60 MG CAPSULE PO SCH (08:12)
[2018-08-20] MEDS: DOCUSATE 100 MG CAPSULE PO SCH (08:13)
[2018-08-20] MEDS: metFORMIN 500 MG TABLET PO SCH (08:13)
[2018-08-20] MEDS: ASPIRIN 325 MG EC TABLET PO SCH (08:13)
[2018-08-20] MEDS: Metoprolol TARTRATE Tab 50 MG TAB PO SCH (08:13)
[2018-08-20] MEDS: HYDROcodone-APAP 7.5 MG-325 MG TABLET PO PRN ×2 (08:33→12:28)
[2018-08-20] MEDS ORDERED: LOSARTAN 25 MG TABLET PO SCH (09:00)
--- NOTE | 2018-08-20 09:54 | ORTHO.PROG ---
Last Taken Vital Signs: Vital Signs - Last Taken Temperature 97.5 F 08/20/18 07:43 Pulse Rate 71 08/20/18 07:43 Respiratory Rate 16 08/20/18 07:43 Blood Pressure 145/70 08/20/18 07:43 Pulse Ox 94 08/20/18 07:43 Subjective: Patient doing well progressing with therapy Objective: Leg was some soreness along the trochanteric region but no significant edema or when he notes. There is a little swelling compared to the other side but mild. Prevena a dressing in place. Motor and sensory exam is nonfocal with good pulses and brisk refill Laboratory Results 08/20/18 04:45 Sodium 138 Potassium 4.8 Chloride 102 Carbon Dioxide 29 Anion Gap 7 BUN 38 H Creatinine 1.3 H Estimated GFR Spanish Translator BUN/Creatinine Ratio 29.23 H Glucose 102 Calculated Osmolality 294.0 H Calcium 9.1 Vital Signs (24 hrs) 08/19/18 12:55 08/19/18 16:58 08/19/18 20:05 Temperature 97.2 F 97 F 97.6 F Pulse Rate [Pulse Oximeter] 60 66 75 Respiratory Rate 16 18 20 Blood Pressure [Left Arm] Blood Pressure [Right Arm] 118/53 123/74 133/83 Pulse Ox 94 96 91 08/20/18 00:07 08/20/18 04:20 08/20/18 04:49 Temperature 97.6 F 97.4 F Pulse Rate [Pulse Oximeter] 79 70 Respiratory Rate 20 20 Blood Pressure [Left Arm] 144/68 Blood Pressure [Right Arm] 136/68 Pulse Ox 92 97 98 08/20/18 07:00 08/20/18 07:43 Temperature 97.5 F Pulse Rate [Pulse Oximeter] 71 71 Respiratory Rate 16 16 Blood Pressure [Left Arm] Blood Pressure [Right Arm] 145/70 Pulse Ox 94 Assessment: Right total hip replacement doing well Plan: Continue with physical therapy and occupational therapy, aspirin for DVT prophylaxis as well as pneumatic sequentials. Patient will be partial weightbearing with walker.
--- NOTE | 2018-08-20 11:25 | PT.PROG ---
Progress Note Progress Note: S: pt reports she is doing well. pt agreeable to PT. O: nsg okay'd prior to PT. pt instructed to ambulate to therapy gym with CGA x 1 and walker. approx 200 feet. pt instructed in 20 mins MHP on her hip. pt instructed in SAQs , 4 way ankle, ube 3/3, sit to stands x 10 reps. R theraband around the claocks 5x. ball squeezes x 10 reps, #3 box x 10 reps CGAx1 and walker. pt CGa for toileting and bed mobility and bed transfers. pt left in her room with alarm activated and call light within reach. A: pt tolerated therapy well today. continues to benefit from skilled therapy to meet established goals. P:cont Per POC.
--- NOTE | 2018-08-20 11:27 | DCSUMMARY ---
Hospitalization Summary Admit Date: 08/16/2018 Discharge Date: 08/20/18 Hospital Course: Discharge diagnoses 1. Status post right hip replacement 2. Diabetes 3. Postoperative anemia status post status of blood transfusion 4. Chronic kidney disease stage III 5. History of CHF unknown type 6. History of hypertension Hospital course This is 77 years old female with medical history significant for history of hypertension, diabetes, chronic kidney disease stage III, CHF unknown type who c elisa into the hospital to have a right hip replacement and was done by Dr. Winter. The hospitalist service were consulted for management of medical issues. Her course was complicated by postoperative blood loss anemia that required 2 units of blood. In Addition she did have some hypotension and hyperkalemia medication where adjusted. I saw her later on during her hospital stay she was making progress. She remained weak so her status was changed to swing bed status to continue physical therapy. I gradually introduced some of her blood pressure medication. We've been holding her diuretic including the Lasix and Aldactone may reintroduce those depending on her blood pressure response. Laboratory Results 08/20/18 04:45 Sodium 138 Potassium 4.8 Chloride 102 Carbon Dioxide 29 Anion Gap 7 BUN 38 H Creatinine 1.3 H Estimated GFR Manager Statistics BUN/Creatinine Ratio 29.23 H Glucose 102 Calculated Osmolality 294.0 H Calcium 9.1 Discharge instruction Diet regular Activity as started tolerated Medications Active Medications Acetaminophen (Tylenol) 325 - 650 mg PO Q4H PRN PRN Reason: pain or fever Hydrocodone Bitart/Acetaminophen (Strum 7.5/325 Tab) 1 - 2 tab PO Q4H PRN PRN Reason: Pain Last Admin: 08/20/18 08:33 Dose: 1 tab Documented by: Al Hydroxide/Mg Hydroxide (Mylanta Liquid) 10 - 20 ml PO Q6H PRN PRN Reason: Indigestion Last Admin: 08/17/18 15:03 Dose: 20 ml Documented by: Aspirin (Aspirin Ec) 325 mg PO BID SYEDA Last Admin: 08/20/18 08:13 Dose: 325 mg Documented by: Bisacodyl (Dulcolax Tab) 5 mg PO BID PRN PRN Reason: Constipation Last Admin: 08/20/18 08:33 Dose: 5 mg Documented by: Bisacodyl (Bisac-Evac Supp) 10 mg RECTAL ONCE PRN PRN Reason: Constipation Calcium Carbonate (Tums) 1 - 2 tab PO Q4H PRN PRN Reason: Indigestion Last Admin: 08/17/18 14:00 Dose: 2 tab Documented by: Calcium/Vitamin D (Calcium 600mg + D 400u Tab) 1 tab PO DAILY [facility] Last Admin: 08/20/18 08:12 Dose: 1 tab Documented by: Diphenhydramine HCl (Benadryl) 25 - 50 mg PO Q4H PRN PRN Reason: Itching Docusate Sodium (Colace) 100 mg PO BID [facility] Last Admin: 08/20/18 08:13 Dose: 100 mg Documented by: Duloxetine HCl (Cymbalta) 60 mg PO DAILY [facility] Last Admin: 08/20/18 08:12 Dose: 60 mg Documented by: Hydromorphone HCl (Dilaudid Inj) 1 mg IVP Q1H PRN PRN Reason: Moderate to Severe Pain Sodium Chloride (Normal Saline 0.9%) 25 mls @ 200 mls/hr IV .Post Infusion PRN PRN Reason: No Primary IV for Flush ONLY Losartan Potassium (Cozaar) 25 mg PO DAILY [facility] Last Admin: 08/20/18 08:13 Dose: 25 mg Documented by: Metformin HCl (Glucophage Tab) 500 mg PO BID [facility] Last Admin: 08/20/18 08:13 Dose: 500 mg Documented by: Metoprolol Tartrate (Lopressor Tab) 50 mg PO BID [facility] Last Admin: 08/20/18 08:13 Dose: 50 mg Documented by: Omeprazole (Prilosec) 20 mg PO BEDTIME [facility] Last Admin: 08/19/18 20:39 Dose: 20 mg Documented by: Ondansetron HCl (Zofran Inj) 4 mg IVP Q4H PRN PRN Reason: NAUSEA / VOMITING Ondansetron HCl (Zofran Odt) 8 mg PO Q6H PRN PRN Reason: NAUSEA Pravastatin Sodium (Pravachol) 80 mg PO BEDTIME [facility] Last Admin: 08/19/18 20:39 Dose: 80 mg Documented by: Prochlorperazine Maleate (Compazine) 10 mg PO Q6H PRN PRN Reason: NAUSEA Follow-up patient status will be switched to swing bed status to continue physical therapy Exam - Vitals Vital Signs: Vital Signs Temperature 97.5 F Temperature Source Temporal Artery Scan Pulse Rate [Pulse Oximeter] 71 Pulse Rate 80 Respiratory Rate 16 Blood Pressure [Right Arm] 145/70 Blood Pressure [Left Arm] 144/68 Blood Pressure 123/49 Pulse Ox 94 Oxygen Flow Rate 2 Oxygen Delivery Method Room Air Height 5 ft 3 in Weight 190 lb 9.6 oz - General General Appearance: No Acute Distress, Obese - Head Head Exam: Normal Inspection - Eye Eye Exam: POSITIVE: Normal Appearance - ENT ENT Exam: POSITIVE: Normal Exam - Neck Neck Exam: Normal Inspection - Respiratory Respiratory Exam: POSITIVE: Clear to Auscultation - Bilaterally - Cardiovascular Cardiovascular Exam: POSITIVE: RRR - GI/Abdominal GI/Abdominal Exam: POSITIVE: Normal Bowel Sounds, Non Tender, Non Distended, Soft, No Organomegaly - Rectal Rectal Exam: POSITIVE: Deferred - External Exam: POSITIVE: Deferred - Extremities Extremities Exam: POSITIVE: Normal Inspection - Back Back Exam: POSITIVE: Normal Inspection - Neurological Neurological Exam: POSITIVE: Alert, Oriented x 3, CN II-XII Intact, No Facial Droop, Speech Intact / Clear - Psychiatric Psychiatric Exam: POSITIVE: Normal Affect Patient Problems - Patient Problem List (1) S/P hip replacement Status: Acute Code(s): Z96.649 - Presence of unspecified artificial hip joint Category: Surgical (2) Diabetes Status: Acute Code(s): E11.9 - Type 2 diabetes mellitus without complications Category: Medical (3) Postoperative anemia Status: Acute Code(s): D64.9 - Anemia, unspecified Category: Medical (4) Hyperkalemia Status: Acute Code(s): E87.5 - Hyperkalemia Category: Medical (5) Hypertension Status: Acute Code(s): I10 - Essential (primary) hypertension Category: Medical (6) Chronic renal failure Status: Acute Code(s): N18.9 - Chronic kidney disease, unspecified Category: Medical
[2018-08-20 12:32] VITALS: BP 137/73; RESP 18; TEMP 97.2; O2SAT 92
[2018-08-21 09:17] LABS: BILIRUBIN,URINE NEGATIVE (NEG); CLARITY,URINE CLEAR (CLEAR); COLOR,URINE YELLOW (Y); GLUCOSE, URINE (UA) NEGATIVE (NEG); OCCULT BLOOD,URINE Trace-intact (NEG); PH,URINE 5.5 (5.0-8.5); PROTEIN,URINE NEGATIVE (NEG); UROBILINOGEN,URINE 0.2 EU/dL (0.2)
[2018-08-21 09:26] LABS: BACTERIA,URINE FEW; RENAL EPITHELIAL CELLS,URINE RARE; SQUAMOUS EPITHELIAL CELL,UR MANY; URINE SAMPLE TYPE CLEAN CATCH URINE; WBC,URINE RARE
[2018-08-21 09:27] LABS: YEAST,URINE RARE
--- NOTE | 2018-08-22 10:15 | OT AM DAY ---
Diagnosis : Right Total Hip Arthroplasty AM - Occupational Therapy S: The patient reports she is doing pretty well today. O: Today we went over ADLs with adaptive devices. The patient was able to use her supervisor plastic sheets and sock aide independently to don underwear, pants, and socks. She also completed a toilet transfer; she ambulated to the toilet and completed toilet hygiene independently. The patient stood at sink x5 minutes and then returned back to her chair. A: The patient is doing well with all of her ADLs and use of adaptive equipment. P: Patient will be discharged from OT at this time as all goals have been met. MTDD
== END 2018-08-20 12:56 | disposition swing bed (61) | DRG 470 ==
LOC: OPS 09:54 → MED/SURG 18:00
PROVIDERS: ADMIT Orthopaedic Surgery; ATTEND Orthopaedic Surgery